=== PATIENT | male | born 1990 | race Two or more races ===

== ENCOUNTER 2024-11-27 16:31 | Emergency (ER) | payer SELFPAY ==
[~2024-11-27] VITALS: Ht 170.2 cm; Wt 70.0 kg
--- NOTE | 2024-11-27 17:04 | ED.PDOC ---
Psychiatric HPI Comments 34 year old male presents to the ED via EMS with a chief complaint of hallucinations onset today. Per EMS, patient was standing outside a storage unit, was standing just staring inside, S.O was on scene. Patient is poor historian, does not answer questions appropriately. Patient states he sees "people with no faces" and states he can't eat due to "knot in stomach." He appears anxious. No other symptoms or modifying factors present at this time. Chief Complaint: Hallucinations Time Seen by MD: 16:50 Reviewed Notes: Medications, Allergies Information Source: Emergency Med Personnel Mode of Arrival: EMS Severity of Mental Status: Moderate Severity of Symptoms: Moderate Timing: Hours Duration: Since onset Prehospital treatment: None Quality: Hallucinations Associated signs and symptoms: Anxiety, Hallucinations Past Medical History PAST MEDICAL HISTORY: Unknown Surgical History: Unknown Family History Family History: Unknown Social History Smoker: Unknown Alcohol: Unknown Drugs: Unknown Lives In: Unknown Unable to Obtain due to: Altered Mental Status Physical Exam General Appearance: Moderate Distress, Normal HEENT: Normal ENT Inspection, Pharynx Normal, TMs Normal Neck: Full Range of Motion, Non-Tender, Normal, Normal Inspection Respiratory: Chest Non-Tender, Lungs Clear, No Accessory Muscle Use, No Respiratory Distress, Normal Breath Sounds Cardiovascular: No Edema, No JVD, No Murmur, No Gallop, Normal Peripheral Pulses, Regular Rate/Rhythm Breast Exam: Deferred Gastrointestinal: No Organomegaly, Non Tender, No Pulsatile Mass, Normal Bowel Sounds, Soft Genitalia: Deferred Pelvic: Deferred Rectal: Deferred Extremities: No calf tenderness, Normal capillary refill, Normal inspection, Normal range of motion, Non-tender, No pedal edema Musculoskeletal : Apperance: Normal Neurologic: Alert, ton container filler II-XII nml as Tested, No Motor Deficits, Normal Affect, Normal Mood, No Sensory Deficits Cerebellar Function: Normal Reflexes: Normal Skin: Dry, Normal Color, Warm Peripheral Pulses: 3+ Radial (R), 3+ Radial (L) Lymphatic: No Adenopathy Was a procedure done? Was a procedure done?: No Psych Differential Dx Psych. Differential Dx: Suicidal X-Ray, Labs, Meds, VS Vital Signs Date Time Temp Pulse Resp B/P (MAP) Pulse Ox O2 Delivery O2 Flow Rate FiO2 11/27/24 17:16 137 24 96 Room Air* 0 21 11/27/24 17:16 137 24 135/78 (97) 96 11/27/24 16:35 98.8 135 24 147/95 99 98.8 Current Medications Medications (Trade) Dose Ordered Sig/Jessy Route Start Time Stop Time Status Last Admin Lorazepam (Ativan Inj) 1 mg ONCE ONCE IM 11/27/24 17:15 11/27/24 17:16 DC 11/27/24 17:15 Patient alert. Vitals stable. He does not want to answering any questions pain Moving all extremities. Medically cleared. Psychiatric evaluation. Time of 1ST Reevaluation: 17:20 Reevaluation 1ST: Unchanged Patient Education/Counseling: Diagnosis, Treatment, Prognosis Family Education/Counseling: No Family Present Departure 1 Departure Time of Disposition: 17:22 Impression: Primary Impression: Schizophrenia Qualified Codes: F20.9 - Schizophrenia, unspecified Disposition: 30 STILL A PATIENT Condition: Good Critical Care Note Critical Care Time?: No Stability Stability form required: No Heart Score Heart Score: Heart Score Response (Comments) Value History N/A 0 EKG N/A 0 Age N/A 0 Risk Factors N/A 0 Troponin N/A 0 Total 0 I personally scribed for COLTON ORDONEZ MD ([email or web address]) on 11/27/24 at 17:04. Electronically submitted by Elizabeth Fallon ([email or web address]). COLTON ORDONEZ MD Nov 27, 2024 17:04
[2024-11-27] MEDS: LORazepam 2MG/ML-1ML VIAL IM ONE (17:15)
[2024-11-27 17:16] VITALS: PULSE 137; RESP 24; O2SAT 96
[2024-11-27 18:20] LABS: Potassium 4.3 mmol/L (3.5-5.1); Sodium 144 mmol/L (136-145)
[2024-11-27 18:21] LABS: Anion Gap 10 (5-15); Carbon Dioxide 24 mmol/L (20-31)
[2024-11-27 18:22] LABS: Calcium 9.9 mg/dL (8.7-10.4)
[2024-11-27 18:26] LABS: BUN/Creatinine Ratio 9.1 (10.0-20.0); Glucose 104 mg/dL (74-106)
[2024-11-27 18:40] LABS: Blood Urea Nitrogen 9 mg/dL (9-23); Chloride 110 mmol/L (98-107)
[2024-11-27] MEDS: SODIUM CHLORIDE 0.9% 1,000 ML IV ONE (21:20)
--- NOTE | 2024-11-28 04:21 | DVHINCON2 ---
Date of Service if different f: Nov 28, 2024 Time of Service: 03:52 Consult Consult Note PSYCHIATRY ED NEW CONSULT HPI: 34 yo pt with unclear PPH presents to ED BIBA for safety, psychiatric stabilization, and possible med initiation/optimization in setting of psychosis and AMS. Psychiatry consulted for safety evaluation and recommendations in context of current presentation Per report, pt was found outside of storage unit staring in space for over an hour and RTIS resulting in sunburns to arms/face, storage staff contacted SO prompting pt arrival to ED for further evaluation Pt p/w moderate thought disorder, confusion, thought blocking, disorganized / nonsensical speech, disorganized TP, paranoia, RTIS, impaired reality testing, withdrawn, poor sleep, anxiety, possible decline in self care, threatening AH "god wants to kill me, there is going to be a zombie apocalypse" and VH of "people with no faces" Pt poor historian with limited J/I and appears to have thought disorder Does not have active outpt MH services established at this time. Currently not on any psychotropic agents, unknown prior psych med trials Would not provide a lucid response when asked if any use of ETOH, THC or IDU prior to admission. UDS unavailable at this time Single, no children, unemployed, ?homeless, unknown support system noted although mentions he keeps in some contact with his mother Unknown trauma hx. Denies FH of psych hospitalizations, suicide attempts, or completed suicides No acute medical/chronic pain issues, hx of seizures/TBI, or recent head injuries, NKDA Unclear if pt has hx of SI/SIB/SA/PSG/violence or prior psych hospitalizations/5150 holds. Does not have access to firearms MSE: General Appearance/Behavior: Alert/awake; appears stated age, marginal grooming/hygiene; calm/ cooperative, poor eye contact, PMR noted Speech: incoherent at times, soft, latency Thought Process: impoverished. limited, thought blocking Thought Content: Abnormal Thoughts/Perceptions: denies dissociative symptoms Homicidality / Violent Thoughts: adamantly denies HI Suicidality: adamantly denies SI Hallucinations: +AVH Delusions: +PI Obsessions /compulsions: None Judgment/Insight: marginal/poor/limited Mood & Affect: "anxious" with mood-congruent, guarded/confused Orientation: oriented x 2 only Attention/Concentration: appears intact Assessment: 34 yo pt with unclear PPH presents to ED BIBA for safety, psychiatric stabilization, and possible med initiation/optimization in setting of psychosis and AMS Pt p/w moderate thought disorder, confusion, thought blocking, disorganized / nonsensical speech, disorganized TP, paranoia, RTIS, impaired reality testing, withdrawn, poor sleep, anxiety, possible decline in self care, threatening AH "god wants to kill me, there is going to be a zombie apocalypse" and VH of "people with no faces" Pt poor historian with limited J/I and appears to have thought disorder Would not provide a lucid response when asked if any use of ETOH, THC or IDU prior to admission. UDS unavailable at this time Currently not on any psychotropic agents Pt medically cleared in ED Acute safety risk remains slightly elevated and is appropriate for inpatient psychiatric admission for further safety, psychiatric stabilization, and possible medication initiation/optimization. Pt willing to transfer to inpt psych facility voluntarily but recommend 5150 hold for GD in setting of AMS. Further observation and any collateral information from family can assist with dx and disposition Primary Diagnosis: Psychotic disorder unspecified Recommend 5150 GD hold and transfer to inpt psych facility for higher level of care 1:1 sitter is recommended Maintain suicide/elopement precautions Obtain collateral info from external sources if/when available Recommend one time dose of olanzapine 15 mg po now Risks/benefits/alternative treatments discussed, informed consent provided by pt Reconsult telepsych services if pt requests to be discharged from ED prior to transfer/upon hold expiration Pt verbalized understanding and is receptive to above tx plan This case was discussed with ED nurse/provider and all parties in agreement with above tx plan Abram Daigle MD Plan discussed with: Patient ABRAM DAIGLE MD Nov 28, 2024 04:21
[2024-11-28] MEDS: OLANZapine 5 MG TAB PO ONE (04:54)
[2024-11-28 07:37] VITALS: PULSE 113; RESP 18
[2024-11-28 08:04] LABS: Urine Protein, UAD Negative (Negative)
[2024-11-28 08:28] LABS: Amphetamine Screen, Urine Pos (NEGATIVE); Barbiturate Scree,Urine Neg (NEGATIVE); Benzodiazephine Screen, Urine Neg (NEGATIVE); Cannabinoid Screen, Urine Neg (NEGATIVE); Cocaine Screen, Urine Neg (NEGATIVE); Opiate Scree,Urine Neg (NEGATIVE); Phencyclidine Screen, Urine Neg (NEGATIVE)
[2024-11-28 11:00] VITALS: PULSE 105; RESP 20; O2SAT 98
[2024-11-28 17:15] VITALS: BP 108/71; PULSE 85; RESP 14; TEMP 97.7; O2SAT 96
== END 2024-11-28 17:20 | disposition short-term general hospital (02) ==
LOC: EDBD 16:31 → ER 16:46
DX: F20.9 Schizophrenia, unspecified (principal); Z79.899 Other long term (current) drug therapy
CPT/HCPCS: 36415; 80048; 80307; 81001; 96360; 96372; 99285; J2060; J7030